=== PATIENT | female | born 1995 | race Caucasian/White ===

== ENCOUNTER 2017-08-19 10:56 | Inpatient (IN) | payer OTHER ==
--- NOTE | 2017-08-19 12:20 | Emergency Department Report ---
HPI - General Chief Complaint: Urogenital-Female Time Seen by Provider: 08/19/17 12:19 - HPI HPI: Patient here with her family reports that she has a sore throat with right ear pain and painful urination for 4 days. She says she had a fever and she took some Motrin and her fever went away. She said pain to throat and right ear is 10 out of 10. She reports that she has difficulty swallowing and she is spitting a lot. When asked if she is cheerful and she said yes. She denies any neck stiffness will report that she has pain to her anterior neck. Pain feels sore worse with swallowing. Denies any cough in. Denies any shortness of breath or chest pain. She also reports that she has painful urination but denies any back pain. Denies any abdominal pain. Last menstrual period was . Patient says she takes no medication and she does not have any medical problem. She says she does not have a primary care physician and doesn' t have to go to the doctor because she is pretty much healthy. Noted patient with elevated heart rate of 122. ED Past Medical Hx - Past Medical History Previous Medical History?: No - Surgical History Past Surgical History?: No - Family History Family history: no significant - Social History Smoking Status: Never Smoker Substance Use Type: None - Medications Home Medications: Home Medications Medication Instructions Recorded Confirmed Last Taken Type No Known Home Medications [No 08/19/17 08/19/17 Unknown History Reported Home Medications] ED Review of Systems ROS: Stated complaint: THROAT/EAR/KIDNEY PAIN Other details as noted in HPI Comment: All other systems reviewed and negative Constitutional: fever, malaise Eyes: denies: eye pain, eye discharge, vision change ENT: ear pain, throat pain. denies: dental pain, hearing loss, congestion Respiratory: no symptoms reported Cardiovascular: denies: chest pain, palpitations, edema, syncope Gastrointestinal: denies: abdominal pain, nausea, vomiting, diarrhea, constipation, hematemesis, melena, hematochezia Genitourinary: dysuria. denies: urgency, frequency, hematuria, discharge, abnormal menses, dyspareunia Musculoskeletal: denies: back pain, joint swelling, arthralgia, myalgia Skin: denies: rash Neurological: denies: headache, numbness, paresthesias, confusion, abnormal gait , vertigo Physical Exam - Physical Exam Vital Signs: Vital Signs 08/19/17 11:11 Temperature 98.3 F Pulse Rate 122 H Respiratory 18 Rate Blood Pressure 137/98 O2 Sat by Pulse 100 Oximetry Vital Signs 08/19/17 08/19/17 08/19/17 11:11 16:16 19:44 Temperature 98.3 F 99.5 F 98.2 F Pulse Rate 122 H 88 92 H Respiratory 18 16 16 Rate Blood Pressure 137/98 102/68 Blood Pressure 103/77 [Right] O2 Sat by Pulse 100 98 Oximetry General: This is a 21-year-old female well-nourished well-developed but appears ill Physical Exam: Head: Normocephalic, atraumatic, no abrasion, no bruising and no contusion. Eyes: Biateral pupils equal and reactive to light, bilateral EOM intact.. Bilateral conjunctival and sclera without injection, normal accommodation. Ears: Bilateral EAC without any redness drainage or swelling, lateral TM pearly styles bilateral tragus is normal and nontender. No auricular abnormality. No Mastoid bones tenderness. Nose: Moist, normal mucosa. No drainage. Maxillary and frontal sinuses nontender to palpate Mouth: Positive right pharyngeal swelling and erythema. The right tonsillar swelling. Uvula is stated to the left and oral airways patent. tongue is normal. right peritonsillar abscess. Neck: Supple, Positive anterior Cervical adenopathy, full range of motion and no C-spine tenderness. No swelling or tracheal deviation Abdomen: Soft, nontender to palpate in all quadrants, no CVA tenderness bilaterally. Normal bowel sounds in all quadrants. Cardiovascular: S1, S2. Cortical 122, regular rhythm rhythm. No murmur. Capillary refill is less then 3 seconds. Lungs: Clear to auscultate bilaterally. No rhonchi, wheezes or rales. No chest wall tenderness MSK: Strength 5/5 in all extremities. No joint deformity or crepitus. Normal inspection. Full range of motion to all extremities Extremities: No clubbing, cyanosis or edema. +2 pulses. No neurovascular compromise Skin: Clean, dry and intact. No rash or lesions. Psych: Normal mood and behavior. ED Course Vital Signs 08/19/17 11:11 Temperature 98.3 F Pulse Rate 122 H Respiratory 18 Rate Blood Pressure 137/98 O2 Sat by Pulse 100 Oximetry Vital Signs 08/19/17 08/19/17 08/19/17 11:11 16:16 19:44 Temperature 98.3 F 99.5 F 98.2 F Pulse Rate 122 H 88 92 H Respiratory 18 16 16 Rate Blood Pressure 137/98 102/68 Blood Pressure 103/77 [Right] O2 Sat by Pulse 100 98 Oximetry - Reevaluation(s) Reevaluation #1: 08/19/17 13:49 Patient here with family reports that she has sore throat and urinary pain. Also with pain to her right ear. Physical findings for swelling for rt oropharynx without any exudate. And also reports drooling Positive right peritonsillar abscess. Pt said that she had a fever but she took over-the- counter pain medication she does not have a fever present. She reports chills. Labs ordered, patient started on IV fluid and was given Toradol 30 mg IV, Zofran 4 mg IV and Solu-Medrol 125 mg IV. Strep test collected and awaiting results. I discussed the patient that she'll need to have a CT scan of the neck with IV contrast and she voiced understanding. Patient is stable and in no acute distress. Reevaluation #2: 08/19/17 13:57 Urinalysis results came back for patient with large leukocyte Estrace, greater than 500 urine blood glucose, large amount of white blood cells and positive bacteria. Patient also negative for . Patient is currently on IV fluid at 1 L she has ketones at 80 in her urine and will be given IV fluid second liter at 1 25 mL an hour after first liter. She is to be started on IV Zosyn 1 dose. Blood cultures ordered and patient for CT scan of the neck with IV contrast. I spoke with Dr. Nixon regarding patient presentation, clinical findings and workup including lab and diagnostics. He is to see the patient shortly. Reevaluation #3: 08/19/17 16:06 Radiologist called to say that patient will write tonsillitis and peritonsillar tonsillar abscess that is just starting. CT scan of the neck results showed patient with right tonsillitis and probably phlegmon versus abscess. As previously said, radiologist called after her CT scan reported that patient would definitely right peritonsillar abscess. I spoke with Dr. Nixon and he reviewed CT scan and reported that abscess is very small and that patient can be admitted in hospital by hospitalist and consult Dr. Caden Ojeda who is ENT. Patient will be getting IV clindamycin per Dr. Nixon. completed Zosyn 4.5 grams.. She says she is feeling better and I updated her on her labs, CT scan and plans for admission. She is in agreement. ED Medical Decision Making - Lab Data Result diagrams: 08/19/17 15:23 08/19/17 15:15 Lab Results 08/19/17 08/19/17 08/19/17 Range/Units 15:15 15:23 Unknown WBC 17.2 H (4.5-11.0) K/mm3 RBC 4.29 (3.65-5.03) M/mm3 Hgb 10.6 (10.1-14.3) gm/dl Hct 32.7 (30.3-42.9) % MCV 76 L (79-97) fl MCH 25 L (28-32) pg MCHC 33 (30-34) % RDW 16.3 H (13.2-15.2) % Plt Count 274 (140-440) K/mm3 Seg Neutrophils % [employer] Sodium 139 (137-145) mmol/L Potassium 3.6 (3.6-5.0) mmol/L Chloride 99.4 (98-107) mmol/L Carbon Dioxide 20 L (22-30) mmol/L Anion Gap 23 mmol/L BUN 12 (7-17) mg/dL Creatinine 0.5 L (0.7-1.2) mg/dL Estimated GFR > 60 ml/min BUN/Creatinine Ratio 24.00 % Glucose 88 (65-100) mg/dL Calcium 8.3 L (8.4-10.2) mg/dL Total Bilirubin 0.70 (0.1-1.2) mg/dL Direct Bilirubin 0.3 H (0-0.2) mg/dL Indirect Bilirubin 0.4 mg/dL AST 10 (5-40) units/L ALT 8 (7-56) units/L Alkaline Phosphatase 62 (35-129) units/L Total Protein 6.7 (6.3-8.2) g/dL Albumin 3.9 (3.9-5) g/dL Albumin/Globulin Ratio 1.4 % Urine Color Yellow (Yellow) Urine Turbidity Clear (Clear) Urine pH 6.0 (5.0-7.0) Ur Specific [place] 1.026 (1.003-1.030) Urine Protein >500 (Negative) mg/dL Urine Glucose (UA) Neg (Negative) mg/dL Urine Ketones 80 (Negative) mg/dL Urine Blood Mod (Negative) Urine Nitrite Neg (Negative) Urine Bilirubin Neg (Negative) Urine Urobilinogen 2.0 (<2.0) mg/dL Ur Leukocyte Esterase Lg (Negative) Urine WBC (Auto) > 182.0 H (0.0-6.0) /HPF Urine RBC (Auto) 40.0 (0.0-6.0) /HPF U Epithel Cells (Auto) 10.0 (0-13.0) /HPF Urine Bacteria (Auto) 1+ (Negative) /HPF Amorphous Crystals Few Urine Mucus 3+ /HPF Urine HCG, Qual Negative (Negative) Blood cultures are pending Urine culture pending - Radiology Data Radiology results: report reviewed CT scan of the neck with IV contrast reveal patient with right tonsillitis, phlegmon versus new onset peritonsillar abscess on the right side. Radiologist Dr. Anson Patterson called after CT report and reported that patient has a definite right peritonsillar abscess that is small. - Medical Decision Making ED course: Vision presented to the emergency room appearing L and reports that she has painful urination for 4 days and sore throat, drooling, fever and neck pain. Physical findings for right peritonsillar abscess without any obstruction and an oral airway. CT scan of the neck shows patient with right tonsillitis and radiologist called and verified the patient has right tonsillitis and right peritonsillar abscess. Radiology report section for further detail. Patient CBC with elevated white count of 17.2 with bacterial shift. CMP with mild decrease in calcium of 8.3 and mild increase and direct bilirubin, mild decrease in CO2 of 20. Urinalysis shows greater than 500 protein, 80 ketones, large leukocyte Estrace, moderate blood and greater than 182 white blood cells with positive bacteria. Urine culture ended and urine evidence that this is negative. Blood cultures also pending. Strep test is negative and culture is pending. Patient given IV fluid 1 L bolus and started on IV fluid at 1 25 mL an hour, she was given Zofran 4 mg IV, Solu-Medrol 125 mg IV, Toradol 30 mg IV. Patient was given Zosyn 4.5 g IV without any adverse reaction. I spoke with Dr. Nixon who reviewed patient CT scan and it was decided that patient can be admitted for hospitalist service with consult to Dr. Quick who is ENT for follow-up tomorrow. Dr. Nixon reviewed patient labs, CT scan. He wants patient's to get clindamycin IV therefore patient was started on clindamycin 900 mg IV which she tolerated without any adverse reaction. Patient with right peritonsillar abscess, right tonsillitis, pharyngitis, leukocytosis, acute cystitis with hematuria, proteinuria and dehydration. With hospitalist Dr. Domínguez. Patient and admitted patient to [facility] and said that he will consult. Nose and throat doctor. Patient and family updated on plan for admission, diagnosis, laboratory and diagnostics test results. They are in agreement for admission and patient is better after IV fluid and antibiotic. Critical care attestation.: If time is entered above; I have spent that time in minutes in the direct care of this critically ill patient, excluding procedure time. ED Disposition Clinical Impression: Peritonsillar abscess, Acute erythematous tonsillitis, Dehydration, Acute cystitis with hematuria, Dysuria Pharyngitis Qualifiers: Pharyngitis/tonsillitis etiology: unspecified etiology Qualified Code(s): J02.9 - Acute pharyngitis, unspecified Leukocytosis, unspecified Qualifiers: Leukocytosis type: unspecified Qualified Code(s): D72.829 - Elevated white blood cell count, unspecified Proteinuria Qualifiers: Proteinuria type: unspecified Qualified Code(s): R80.9 - Proteinuria, unspecified Disposition: OP ADMIT IP TO THIS HOSP Is pt being admited?: Yes Does the pt Need Aspirin: No Condition: Stable
[2017-08-19] MEDS ORDERED: ZOFRAN IV ONE (12:54)
[2017-08-19] MEDS ORDERED: NACL 0.9% 1000 ML 1,000 ML IV ONE (12:54)
[2017-08-19] MEDS ORDERED: TORADOL IV ONE (12:54)
[2017-08-19 13:22] LABS: Bacteria,Urine 1+ /HPF (Negative); Bilirubin,Urine NEG (Negative); Blood,Urine MOD (Negative); Ketones,Urine 80 mg/dL (Negative); Leukocyte Esterase,Urine LG (Negative); Mucus,Urine 3+ /HPF; Nitrite,Urine NEG (Negative)
[2017-08-19 13:24] LABS: Protein,Urine >500 mg/dL (Negative); WBC,Urine > 182.0 /HPF (0.0-6.0)
[2017-08-19] MEDS ORDERED: ZOSYN/NS 4.5GM/100ML 4.5 GM/100 ML VIAL IV ONE (13:54)
[2017-08-19] MEDS ORDERED: NACL ONE (14:13)
--- NOTE | 2017-08-19 15:09 | Cat Scan Report ---
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 Coronal and sagittal reconstructed imaging provided. PRIORS: None currently available. FINDINGS: Bilateral palatine tonsils are enlarged. Low-attenuation area noted within the right tonsil on series 3:42 measures 15.5 x 15.3 x 25.6 mm and is probably consistent with a phlegmon or developing peritonsillar abscess. Nasopharyngeal tonsils are intact. There is mild prominence of the right lingual tonsils. There is notable swelling noted within the right pharynx and right parapharyngeal soft tissues. The right floor of the mouth is also swollen. The submandibular spaces intact. Notable right submandibular and bilateral upper cervical lymph nodes are prominent suggesting adenopathy. Airway is narrowed with the narrowest diameter measuring 9.0 x 16.8 mm. Epiglottis is unremarkable. Larynx is unremarkable. True cords are unremarkable. There may be some trace fluid or swelling in the right retropharyngeal soft tissues on series 3:55. Submandibular glands are unremarkable. Parotid glands are unremarkable. Images of the thyroid are unremarkable. Patent vascular structures demonstrate calcifications. No mass lesions identified. Partially imaged paranasal sinuses are unremarkable. Partially imaged temporal bones are unremarkable. Reversal of the normal cervical alignment may be physiologic. Partial images of the lungs are unremarkable. IMPRESSION: Right pharyngitis and tonsillitis with a right peritonsillar phlegmon or developing abscess. Swelling does slightly extent along the right floor of the mouth. No involvement of the submandibular soft tissues. Reactive right submandibular and bilateral upper cervical adenopathy noted.
[2017-08-19 15:32] LABS: Hematocrit 32.7 % (30.3-42.9); Hemoglobin 10.6 gm/dl (10.1-14.3); Mean Corpuscular HGB Conc 33 % (30-34); Mean Corpuscular Volume 76 fl (79-97); Platelet Count 274 K/mm3 (140-440); Red Blood Count 4.29 M/mm3 (3.65-5.03); Red Cell Distribution Width 16.3 % (13.2-15.2); White Blood Count 17.2 K/mm3 (4.5-11.0)
[2017-08-19 15:38] LABS: Mean Corpuscular Hemoglobin 25 pg (28-32)
[2017-08-19 15:48] LABS: Alanine Aminotransferase 8 units/L (7-56); Albumin 3.9 g/dL (3.9-5); Albumin/Globulin Ratio 1.4 %; Alkaline Phosphatase 62 units/L (35-129); Anion Gap 23 mmol/L; Bilirubin,Direct 0.3 mg/dL (0-0.2); Bilirubin,Indirect 0.4 mg/dL; Blood Urea Nitrogen 12 mg/dL (7-17); Calcium 8.3 mg/dL (8.4-10.2); Carbon Dioxide 20 mmol/L (22-30); Chloride 99.4 mmol/L (98-107); Glucose 88 mg/dL (65-100); Potassium 3.6 mmol/L (3.6-5.0); Sodium 139 mmol/L (137-145); Total Protein 6.7 g/dL (6.3-8.2)
[2017-08-19 16:25] LABS: Blastocytes % (Manual) 0 %
[2017-08-19 16:26] LABS: Eosinophils % (Manual) 0 % (0.0-4.3)
[2017-08-19 16:28] LABS: Diff Status Complete; Elliptocytes Few; Platelet Estimate Consistent w Auto
[2017-08-19] MEDS: NACL 0.9% 1000 ML 1,000 ML IV SCH ×2 (18:04→22:39)
[2017-08-19] MEDS ORDERED: NACL 0.9% 1000 ML 1,000 ML ONE (18:08)
[2017-08-19] MEDS ORDERED: MORPHINE IV PRN (22:21)
[2017-08-19] MEDS ORDERED: DILAUDID IV PRN (23:46)
[2017-08-19] MEDS ORDERED: MILK OF MAGNESIA PO PRN (23:46)
[2017-08-19] MEDS ORDERED: DULCOLAX PR PRN (23:46)
[2017-08-19] MEDS ORDERED: ZOFRAN IV PRN (23:46)
--- NOTE | 2017-08-19 23:46 | History and Physical Report ---
History of Present Illness Date of examination: 08/19/17 Date of admission: 08/19/17 16:35 Medications and Allergies Allergies Allergy/AdvReac Type Severity Reaction Status Date / Time No Known Allergies Allergy Unverified 08/19/17 11:16 Home Medications Medication Instructions Recorded Confirmed Last Taken Type No Known Home Medications [No 08/19/17 08/19/17 Unknown History Reported Home Medications] Active Meds: Active Medications Sodium Chloride (Nacl 0.9% 1000 Ml) 1,000 mls @ 125 mls/hr IV DIRECT PRAVEEN Last Admin: 08/19/17 22:39 Dose: 125 mls/hr Morphine Sulfate (Morphine) 1 mg IV Q6H PRN PRN Reason: Pain, Moderate (4-6) Last Admin: 08/19/17 22:37 Dose: 1 mg Exam - Constitutional Vitals: Temp Pulse Resp BP Pulse Ox 98.2 F 92 H 16 102/68 98 08/19/17 19:44 08/19/17 19:44 08/19/17 19:44 08/19/17 19:44 08/19/17 19:44 Results - Labs CBC & Chem 7: 08/19/17 15:23 08/19/17 15:15 Labs: Laboratory Last Values WBC 17.2 K/mm3 (4.5-11.0) H 08/19/17 15:23 RBC 4.29 M/mm3 (3.65-5.03) 08/19/17 15:23 Hgb 10.6 gm/dl (10.1-14.3) 08/19/17 15:23 Hct 32.7 % (30.3-42.9) 08/19/17 15:23 MCV 76 fl (79-97) L 08/19/17 15:23 MCH 25 pg (28-32) L 08/19/17 15:23 MCHC 33 % (30-34) 08/19/17 15:23 RDW 16.3 % (13.2-15.2) H 08/19/17 15:23 Plt Count 274 K/mm3 (140-440) 08/19/17 15:23 Add Manual Diff Complete 08/19/17 15:23 Total Counted 100 08/19/17 15:23 Seg Neutrophils % Youth Pastor 08/19/17 15:23 Seg Neuts % (Manual) 85.0 % (40.0-70.0) H 08/19/17 15:23 Band Neutrophils % 12.0 % 08/19/17 15:23 Lymphocytes % (Manual) 2.0 % (13.4-35.0) L 08/19/17 15:23 Reactive Lymphs % (Man) 0 % 08/19/17 15:23 Monocytes % (Manual) 1.0 % (0.0-7.3) 08/19/17 15:23 Eosinophils % (Manual) 0 % (0.0-4.3) 08/19/17 15:23 Metamyelocytes % 0 % 08/19/17 15:23 Myelocytes % 0 % 08/19/17 15:23 Promyelocytes % 0 % 08/19/17 15:23 Blast Cells % 0 % 08/19/17 15:23 Nucleated RBC % Not Reportable 08/19/17 15:23 Seg Neutrophils # Man 14.6 K/mm3 (1.8-7.7) H 08/19/17 15:23 Band Neutrophils # 2.1 K/mm3 08/19/17 15:23 Lymphocytes # (Manual) 0.3 K/mm3 (1.2-5.4) L 08/19/17 15:23 Abs React Lymphs (Man) 0.0 K/mm3 08/19/17 15:23 Monocytes # (Manual) 0.2 K/mm3 (0.0-0.8) 08/19/17 15:23 Eosinophils # (Manual) 0.0 K/mm3 (0.0-0.4) 08/19/17 15:23 Basophils # (Manual) 0.0 K/mm3 (0.0-0.1) 08/19/17 15:23 Metamyelocytes # 0.0 K/mm3 08/19/17 15:23 Myelocytes # 0.0 K/mm3 08/19/17 15:23 Promyelocytes # 0.0 K/mm3 08/19/17 15:23 Blast Cells # 0.0 K/mm3 08/19/17 15:23 WBC Morphology Not Reportable 08/19/17 15:23 Hypersegmented Neuts Not Reportable 08/19/17 15:23 Hyposegmented Neuts Not Reportable 08/19/17 15:23 Hypogranular Neuts Not Reportable 08/19/17 15:23 Smudge Cells Not Reportable 08/19/17 15:23 Toxic Granulation Not Reportable 08/19/17 15:23 Toxic Vacuolation Not Reportable 08/19/17 15:23 Dohle Bodies Not Reportable 08/19/17 15:23 Pelger-Huet Anomaly Not Reportable 08/19/17 15:23 Araceli Rods Not Reportable 08/19/17 15:23 Platelet Estimate Consistent w auto 08/19/17 15:23 Clumped Platelets Not Reportable 08/19/17 15:23 Plt Clumps, EDTA Not Reportable 08/19/17 15:23 Large Platelets Not Reportable 08/19/17 15:23 Giant Platelets Not Reportable 08/19/17 15:23 Platelet Satelliting Not Reportable 08/19/17 15:23 Plt Morphology Comment Not Reportable 08/19/17 15:23 RBC Morphology Not Reportable 08/19/17 15:23 Dimorphic RBCs Not Reportable 08/19/17 15:23 Polychromasia Not Reportable 08/19/17 15:23 Hypochromasia Not Reportable 08/19/17 15:23 Poikilocytosis Not Reportable 08/19/17 15:23 Anisocytosis Not Reportable 08/19/17 15:23 Microcytosis Not Reportable 08/19/17 15:23 Macrocytosis Not Reportable 08/19/17 15:23 Spherocytes Not Reportable 08/19/17 15:23 Pappenheimer Bodies Not Reportable 08/19/17 15:23 Sickle Cells Not Reportable 08/19/17 15:23 Target Cells Not Reportable 08/19/17 15:23 Tear Drop Cells Not Reportable 08/19/17 15:23 Ovalocytes Not Reportable 08/19/17 15:23 Helmet Cells Not Reportable 08/19/17 15:23 [place] Bodies Not Reportable 08/19/17 15:23 [place] Rings Not Reportable 08/19/17 15:23 [place] Cells Not Reportable 08/19/17 15:23 Bite Cells Not Reportable 08/19/17 15:23 Crenated Cell Not Reportable 08/19/17 15:23 Elliptocytes Few 08/19/17 15:23 Acanthocytes (Spur) Not Reportable 08/19/17 15:23 Rouleaux Not Reportable 08/19/17 15:23 Hemoglobin C Crystals Not Reportable 08/19/17 15:23 Schistocytes Not Reportable 08/19/17 15:23 Malaria parasites Not Reportable 08/19/17 15:23 [place] Bodies Not Reportable 08/19/17 15:23 Hem Pathologist Commnt No 08/19/17 15:23 Sodium 139 mmol/L (137-145) 08/19/17 15:15 Potassium 3.6 mmol/L (3.6-5.0) 08/19/17 15:15 Chloride 99.4 mmol/L (98-107) 08/19/17 15:15 Carbon Dioxide 20 mmol/L (22-30) L 08/19/17 15:15 Anion Gap 23 mmol/L 08/19/17 15:15 BUN 12 mg/dL (7-17) 08/19/17 15:15 Creatinine 0.5 mg/dL (0.7-1.2) L 08/19/17 15:15 Estimated GFR > 60 ml/min 08/19/17 15:15 BUN/Creatinine Ratio 24.00 % 08/19/17 15:15 Glucose 88 mg/dL (65-100) 08/19/17 15:15 Calcium 8.3 mg/dL (8.4-10.2) L 08/19/17 15:15 Total Bilirubin 0.70 mg/dL (0.1-1.2) 08/19/17 15:15 Direct Bilirubin 0.3 mg/dL (0-0.2) H 08/19/17 15:15 Indirect Bilirubin 0.4 mg/dL 08/19/17 15:15 AST 10 units/L (5-40) 08/19/17 15:15 ALT 8 units/L (7-56) 08/19/17 15:15 Alkaline Phosphatase 62 units/L (35-129) 08/19/17 15:15 Total Protein 6.7 g/dL (6.3-8.2) 08/19/17 15:15 Albumin 3.9 g/dL (3.9-5) 08/19/17 15:15 Albumin/Globulin Ratio 1.4 % 08/19/17 15:15 Urine Color Yellow (Yellow) 08/19/17 Unknown Urine Turbidity Clear (Clear) 08/19/17 Unknown Urine pH 6.0 (5.0-7.0) 08/19/17 Unknown Ur Specific [place] 1.026 (1.003-1.030) 08/19/17 Unknown Urine Protein >500 mg/dL (Negative) 08/19/17 Unknown Urine Glucose (UA) Neg mg/dL (Negative) 08/19/17 Unknown Urine Ketones 80 mg/dL (Negative) 08/19/17 Unknown Urine Blood Mod (Negative) 08/19/17 Unknown Urine Nitrite Neg (Negative) 08/19/17 Unknown Urine Bilirubin Neg (Negative) 08/19/17 Unknown Urine Urobilinogen 2.0 mg/dL (<2.0) 08/19/17 Unknown Ur Leukocyte Esterase Lg (Negative) 08/19/17 Unknown Urine WBC (Auto) > 182.0 /HPF (0.0-6.0) H 08/19/17 Unknown Urine RBC (Auto) 40.0 /HPF (0.0-6.0) 08/19/17 Unknown U Epithel Cells (Auto) 10.0 /HPF (0-13.0) 08/19/17 Unknown Urine Bacteria (Auto) 1+ /HPF (Negative) 08/19/17 Unknown Amorphous Crystals Few 08/19/17 Unknown Urine Mucus 3+ /HPF 08/19/17 Unknown Urine HCG, Qual Negative (Negative) 08/19/17 Unknown
[2017-08-20 05:24] LABS: Hematocrit 30.3 % (30.3-42.9); Hemoglobin 9.8 gm/dl (10.1-14.3); Mean Corpuscular HGB Conc 32 % (30-34); Mean Corpuscular Volume 76 fl (79-97); Platelet Count 298 K/mm3 (140-440); Red Cell Distribution Width 16.5 % (13.2-15.2)
[2017-08-20 05:29] LABS: Mean Corpuscular Hemoglobin 24 pg (28-32)
[2017-08-20 05:53] LABS: Alanine Aminotransferase 9 units/L (7-56); Albumin 3.6 g/dL (3.9-5); Alkaline Phosphatase 64 units/L (35-129); Anion Gap 18 mmol/L; Blood Urea Nitrogen 13 mg/dL (7-17); Calcium 8.9 mg/dL (8.4-10.2); Carbon Dioxide 24 mmol/L (22-30); Chloride 103.1 mmol/L (98-107); Glucose 144 mg/dL (65-100); Potassium 3.6 mmol/L (3.6-5.0); Sodium 141 mmol/L (137-145); Total Protein 7.1 g/dL (6.3-8.2)
[2017-08-20] MEDS: D5NS 1,000 ML IV SCH ×2 (05:53→19:42)
[2017-08-20 07:58] LABS: Basophils % (Manual) 0 % (0.0-1.8); Blastocytes % (Manual) 0 %; Eosinophils % (Manual) 0 % (0.0-4.3)
[2017-08-20 07:59] LABS: Anisocytosis 1+; Diff Status Complete; Elliptocytes Few; Hypochromasia 1+
--- NOTE | 2017-08-20 08:08 | Event Note ---
Date: 08/19/17 See H/p in reports Peritonsillar abscess On Rocephin and low dose Methyl prednisone
--- NOTE | 2017-08-20 09:20 | History and Physical Report ---
CHIEF COMPLAINT: Sore throat and right ear pain for 4 days. HISTORY OF PRESENT ILLNESS: The patient is a 21-year-old female with no significant past medical history who comes in for fever of 3-4 days and sore throat and right ear pain. The patient also has had some difficulty swallowing. No shortness of breath. The patient has a history of recurrent tonsillitis, about 2-3 times a year. Pain is about 10 on a scale of 1-10. PAST MEDICAL HISTORY: Significant for no hypertension, no diabetes. PAST SURGICAL HISTORY: None. FAMILY HISTORY: No hypertension, no diabetes. SOCIAL HISTORY: She does not smoke. CURRENT MEDICATIONS: None. REVIEW OF SYSTEMS: HEENT: Sore throat and right ear pain present. Pain is about 10 on a scale of 1-10. NECK: No neck pain. CARDIOVASCULAR AND RESPIRATORY SYSTEM: No shortness of breath, no chest pain, no palpitations. GASTROINTESTINAL: No nausea, no vomiting, no diarrhea. GENITOURINARY: No dysuria, no flank pain. MUSCULOSKELETAL: No joint pains. CENTRAL NERVOUS SYSTEM: No syncope, no seizures. SKIN: No rashes. ENDOCRINE: No polyuria or polydipsia. No weakness. A 14-point review of systems was done. Otherwise negative. Only positive complaint is sore throat and right ear pain. Right ear pain is about 10/10. PHYSICAL EXAMINATION: GENERAL: Young female, cooperative during examination. VITAL SIGNS: Temperature is 98.3, pulse is 122, respirations 18, blood pressure 137/98. HEENT: Unremarkable. Pupils are equal and reactive. Posterior pharynx, right tonsillar swelling present, coming up to the midline, pushing the uvula to the left. Jugulodigastric lymph node is swollen on the right side. NECK: Supple, no lymphadenopathy, no thyromegaly except for the jugulodigastric lymph node on the right side. CARDIOVASCULAR: Irregular heart rate. No gallop, no murmur, no rub. Apical impulse in left fifth intercostal space and midclavicular line. LUNGS: Clear to auscultation and percussion. Good air entry. ABDOMEN: Soft and benign. No hepatosplenomegaly. No guarding, no rigidity. Hernial orifices are normal. EXTREMITIES: Good pedal pulses. No pedal edema. CENTRAL NERVOUS SYSTEM: Alert and oriented x 4. Nonfocal exam. SKIN: Normal. LABORATORY DATA: Significant for white count of 17,200, hemoglobin is 10.6, hematocrit is 32.7. IMAGING STUDIES: CT of the neck and right enlarged tonsils with possible peritonsillar abscess. ASSESSMENT AND PLAN: 1. Peritonsillar abscess. The patient was initiated with IV Rocephin and low dose of methylprednisone to decrease the swelling 40 mg IV q. 12 hours. We will defer to ENT to evaluate and stop the methylprednisone. The patient was given one dose of Zosyn in the ER. I feel Rocephin should be adequate for the treatment of peritonsillar abscess. Zosyn is an oral pill. 2. Dehydration secondary to poor p.o. intake, IV fluids for now. 3. Deep venous thrombosis prophylaxis, Lovenox 40 mg subcutaneous daily. JOB# [id number] JN/INOCENCIO
[2017-08-20] MEDS ORDERED: ROCEPHIN/NS 2 GM/100 ML 2 GM/100 ML BAG IV SCH (10:00)
--- NOTE | 2017-08-20 11:09 | Progress Note ---
Assessment and Plan Assessment and plan: Peritonsillar abscess. Continue IV antibiotics. Consult ID. ENT consultation pending. Right pharyngitis/tonsillitis. As above. Cervical lymphadenopathy. Malar rash. Check DIMPLE History Interval history: Patient complains of throat pain and difficulty swallowing. Hospitalist Physical - Constitutional Vitals: Temp Pulse Resp BP Pulse Ox 98.5 F 67 20 91/53 98 08/20/17 07:11 08/20/17 07:11 08/20/17 07:11 08/20/17 07:11 08/20/17 07:11 General appearance: Present: no acute distress, well-nourished - EENT Eyes: Present: PERRL, EOM intact ENT: hearing intact, clear oral mucosa, dentition normal - Neck Neck: Present: supple, normal ROM, cervical LAD - Respiratory Respiratory effort: normal Respiratory: bilateral: CTA - Cardiovascular Rhythm: regular Heart Sounds: Present: S1 & S2. Absent: gallop, rub - Extremities Extremities: no ischemia, No edema, Full ROM - Abdominal General gastrointestinal: soft, non-tender, non-distended, normal bowel sounds - Integumentary Integumentary: Present: clear, warm, dry - Neurologic Neurologic: CNII-XII intact, moves all extremities Results - Labs CBC & Chem 7: 08/20/17 04:51 08/20/17 04:51 Labs: Laboratory Last Values WBC 19.0 K/mm3 (4.5-11.0) H 08/20/17 04:51 RBC 4.00 M/mm3 (3.65-5.03) 08/20/17 04:51 Hgb 9.8 gm/dl (10.1-14.3) L 08/20/17 04:51 Hct 30.3 % (30.3-42.9) 08/20/17 04:51 MCV 76 fl (79-97) L 08/20/17 04:51 MCH 24 pg (28-32) L 08/20/17 04:51 MCHC 32 % (30-34) 08/20/17 04:51 RDW 16.5 % (13.2-15.2) H 08/20/17 04:51 Plt Count 298 K/mm3 (140-440) 08/20/17 04:51 Add Manual Diff Complete 08/20/17 04:51 Total Counted 100 09/25/17 04:51 Seg Neutrophils % [place] Washer 08/20/17 04:51 Seg Neuts % (Manual) 79.0 % (40.0-70.0) H 08/20/17 04:51 Band Neutrophils % 10.0 % 08/20/17 04:51 Lymphocytes % (Manual) 10.0 % (13.4-35.0) L 08/20/17 04:51 Reactive Lymphs % (Man) 0 % 08/20/17 04:51 Monocytes % (Manual) 1.0 % (0.0-7.3) 08/20/17 04:51 Eosinophils % (Manual) 0 % (0.0-4.3) 08/20/17 04:51 Basophils % (Manual) 0 % (0.0-1.8) 08/20/17 04:51 Metamyelocytes % 0 % 08/20/17 04:51 Myelocytes % 0 % 08/20/17 04:51 Promyelocytes % 0 % 08/20/17 04:51 Blast Cells % 0 % 08/20/17 04:51 Nucleated RBC % Not Reportable 08/20/17 04:51 Seg Neutrophils # Man 15.0 K/mm3 (1.8-7.7) H 08/20/17 04:51 Band Neutrophils # 1.9 K/mm3 08/20/17 04:51 Lymphocytes # (Manual) 1.9 K/mm3 (1.2-5.4) 08/20/17 04:51 Abs React Lymphs (Man) 0.0 K/mm3 08/20/17 04:51 Monocytes # (Manual) 0.2 K/mm3 (0.0-0.8) 08/20/17 04:51 Eosinophils # (Manual) 0.0 K/mm3 (0.0-0.4) 08/20/17 04:51 Basophils # (Manual) 0.0 K/mm3 (0.0-0.1) 08/20/17 04:51 Metamyelocytes # 0.0 K/mm3 08/20/17 04:51 Myelocytes # 0.0 K/mm3 08/20/17 04:51 Promyelocytes # 0.0 K/mm3 08/20/17 04:51 Blast Cells # 0.0 K/mm3 08/20/17 04:51 WBC Morphology Not Reportable 08/20/17 04:51 Hypersegmented Neuts Not Reportable 08/20/17 04:51 Hyposegmented Neuts Not Reportable 08/20/17 04:51 Hypogranular Neuts Not Reportable 08/20/17 04:51 Smudge Cells Not Reportable 08/20/17 04:51 Toxic Granulation Not Reportable 08/20/17 04:51 Toxic Vacuolation Not Reportable 08/20/17 04:51 Dohle Bodies Not Reportable 08/20/17 04:51 Pelger-Huet Anomaly Not Reportable 08/20/17 04:51 Araceli Rods Not Reportable 08/20/17 04:51 Platelet Estimate Appears normal 08/20/17 04:51 Clumped Platelets Not Reportable 08/20/17 04:51 Plt Clumps, EDTA Not Reportable 08/20/17 04:51 Large Platelets Not Reportable 08/20/17 04:51 Giant Platelets Not Reportable 08/20/17 04:51 Platelet Satelliting Not Reportable 08/20/17 04:51 Plt Morphology Comment Not Reportable 08/20/17 04:51 RBC Morphology Not Reportable 08/20/17 04:51 Dimorphic RBCs Not Reportable 08/20/17 04:51 Polychromasia Not Reportable 08/20/17 04:51 Hypochromasia 1+ 08/20/17 04:51 Poikilocytosis Not Reportable 08/20/17 04:51 Anisocytosis 1+ 08/20/17 04:51 Microcytosis Not Reportable 08/20/17 04:51 Macrocytosis Not Reportable 08/20/17 04:51 Spherocytes Not Reportable 08/20/17 04:51 Pappenheimer Bodies Not Reportable 08/20/17 04:51 Sickle Cells Not Reportable 08/20/17 04:51 Target Cells Not Reportable 08/20/17 04:51 Tear Drop Cells Not Reportable 08/20/17 04:51 Ovalocytes Not Reportable 08/20/17 04:51 Helmet Cells Not Reportable 08/20/17 04:51 [place] Bodies Not Reportable 08/20/17 04:51 [place] Rings Not Reportable 08/20/17 04:51 [place] Cells Not Reportable 08/20/17 04:51 Bite Cells Not Reportable 08/20/17 04:51 Crenated Cell Not Reportable 08/20/17 04:51 Elliptocytes Few 08/20/17 04:51 Acanthocytes (Spur) Not Reportable 08/20/17 04:51 Rouleaux Not Reportable 08/20/17 04:51 Hemoglobin C Crystals Not Reportable 08/20/17 04:51 Schistocytes Not Reportable 08/20/17 04:51 Malaria parasites Not Reportable 08/20/17 04:51 [place] Bodies Not Reportable 08/20/17 04:51 Hem Pathologist Commnt No 08/20/17 04:51 Sodium 141 mmol/L (137-145) 08/20/17 04:51 Potassium 3.6 mmol/L (3.6-5.0) 08/20/17 04:51 Chloride 103.1 mmol/L (98-107) 08/20/17 04:51 Carbon Dioxide 24 mmol/L (22-30) 08/20/17 04:51 Anion Gap 18 mmol/L 08/20/17 04:51 BUN 13 mg/dL (7-17) 08/20/17 04:51 Creatinine 0.5 mg/dL (0.7-1.2) L 08/20/17 04:51 Estimated GFR > 60 ml/min 08/20/17 04:51 BUN/Creatinine Ratio 26.00 % 08/20/17 04:51 Glucose 144 mg/dL (65-100) H 08/20/17 04:51 Calcium 8.9 mg/dL (8.4-10.2) 08/20/17 04:51 Total Bilirubin 0.30 mg/dL (0.1-1.2) 08/20/17 04:51 Direct Bilirubin 0.3 mg/dL (0-0.2) H 08/19/17 15:15 Indirect Bilirubin 0.4 mg/dL 08/19/17 15:15 AST 9 units/L (5-40) 08/20/17 04:51 ALT 9 units/L (7-56) 08/20/17 04:51 Alkaline Phosphatase 64 units/L (35-129) 08/20/17 04:51 Total Protein 7.1 g/dL (6.3-8.2) 08/20/17 04:51 Albumin 3.6 g/dL (3.9-5) L 08/20/17 04:51 Albumin/Globulin Ratio 1.0 % 08/20/17 04:51 Urine Color Yellow (Yellow) 08/19/17 Unknown Urine Turbidity Clear (Clear) 08/19/17 Unknown Urine pH 6.0 (5.0-7.0) 08/19/17 Unknown Ur Specific [place] 1.026 (1.003-1.030) 08/19/17 Unknown Urine Protein >500 mg/dL (Negative) 08/19/17 Unknown Urine Glucose (UA) Neg mg/dL (Negative) 08/19/17 Unknown Urine Ketones 80 mg/dL (Negative) 08/19/17 Unknown Urine Blood Mod (Negative) 08/19/17 Unknown Urine Nitrite Neg (Negative) 08/19/17 Unknown Urine Bilirubin Neg (Negative) 08/19/17 Unknown Urine Urobilinogen 2.0 mg/dL (<2.0) 08/19/17 Unknown Ur Leukocyte Esterase Lg (Negative) 08/19/17 Unknown Urine WBC (Auto) > 182.0 /HPF (0.0-6.0) H 08/19/17 Unknown Urine RBC (Auto) 40.0 /HPF (0.0-6.0) 08/19/17 Unknown U Epithel Cells (Auto) 10.0 /HPF (0-13.0) 08/19/17 Unknown Urine Bacteria (Auto) 1+ /HPF (Negative) 08/19/17 Unknown Amorphous Crystals Few 08/19/17 Unknown Urine Mucus 3+ /HPF 08/19/17 Unknown Urine HCG, Qual Negative (Negative) 08/19/17 Unknown
[2017-08-20] MEDS: PEPCID IV SCH ×2 (12:37→21:19)
--- NOTE | 2017-08-20 12:53 | Consultation ---
History of Present Illness - Reason for Consult Consult date: 08/20/17 peritonsillar abscess Requesting physician: EDU KELLY - History of Present Illness 21 years old female with not known medical history, admitted on 08/19/2017 due to four-day history of severe sore throat, malaise and subjective fever on and off. She did not check her temperature. She also has been complaining of suprapubic abdominal pain, 7 out of 10 in intensity, spasm-type associated with frequency and dysuria. Patient denies any recent sick contacts or travels. She is single with 2 kids. In the emergency room, initial temperature was 98.3, heart rate 122. Initial white count 17,000. UA showed large leukocyte esterase and white blood cells more than 182. Strep group A antigen was negative. CT of the neck showed right pharingytis and tonsillitis with a tonsillar phlegmon or early abscess. Also showed reactive the right submandibular lymph node on bilateral upper cervical lymph nodes. Current Antimicrobials: Ceftriaxone 08/20 Previous Antimicrobials: Microbiology: Blood cultures: 08/19 ngtd Urine cultures: Respiratory cultures: Wound cultures: Stool cultures: Other: Strep A antigen neg Medications and Allergies Allergies Allergy/AdvReac Type Severity Reaction Status Date / Time No Known Allergies Allergy Unverified 08/19/17 11:16 Home Medications Medication Instructions Recorded Confirmed Last Taken Type No Known Home Medications [No 08/19/17 08/19/17 Unknown History Reported Home Medications] Active Meds: Active Medications Acetaminophen (Tylenol) 650 mg PO Q4H PRN PRN Reason: Pain MILD(1-3)/Fever >100.5/MANDUJANO Bisacodyl (Dulcolax) 10 mg KS QDAY PRN PRN Reason: Constipation unrelieved by MOM Famotidine (Pepcid) 20 mg IV BID PRAVEEN Last Admin: 08/20/17 12:37 Dose: 20 mg Hydromorphone HCl (Dilaudid) 0.5 mg IV Q3H PRN PRN Reason: Pain , Severe (7-10) Sodium Chloride (Nacl 0.9% 1000 Ml) 1,000 mls @ 125 mls/hr IV DIRECT PRAVEEN Last Admin: 08/19/17 22:39 Dose: 125 mls/hr Dextrose/Sodium Chloride (D5ns) 1,000 mls @ 100 mls/hr IV DIRECT PRAVEEN Last Admin: 08/20/17 05:53 Dose: 100 mls/hr Ceftriaxone Sodium (Rocephin/Ns 2 Gm/100 Ml) 2 gm in 100 mls @ 200 mls/hr IV Q24HR [facility] PRN Reason: Protocol Last Admin: 08/20/17 12:36 Dose: 200 mls/hr Magnesium Hydroxide (Milk Of Magnesia) 30 ml PO Q4H PRN PRN Reason: Constipation Methylprednisolone Sodium Succinate (Solu-Medrol) 40 mg IV Q12H [facility] Last Admin: 08/20/17 00:13 Dose: 40 mg Morphine Sulfate (Morphine) 1 mg IV Q6H PRN PRN Reason: Pain, Moderate (4-6) Last Admin: 08/19/17 22:37 Dose: 1 mg Ondansetron HCl (Zofran) 4 mg IV Q8H PRN PRN Reason: N/V unrelieved by Reglan Review of Systems Constitutional: fever, chills, fatigue, weakness, malaise, no weight loss, no weight gain Ears, nose, mouth and throat: sore throat, no ear pain, no ear discharge, no tinnitis, no nose pain, no nasal congestion, no sinus pressure, no odynophagia Cardiovascular: no orthopnea, no shortness of breath Respiratory: no cough, no cough with sputum, no hemoptysis Gastrointestinal: abdominal pain, no nausea, no vomiting Genitourinary Female: dysuria, urinary frequency, no hematuria Physical Examination - Physical Exam Narrative exam: General appearance: Alert in NAD, conversant Eyes: anicteric sclerae, moist conjunctivae; no lid-lag; PERRLA HENT: Atraumatic; oropharynx limited; normal hard and soft palate. Normal external ears. Neck: Trachea midline; +cervical and right submandibular lymphadenopathy Lungs: CTA, with normal respiratory effort and no intercostal retractions CV: RRR, no murmurs Abdomen: Soft, non-tender; no masses or hepatosplenomegaly Extremities: No peripheral edema or extremity lymphadenopathy Skin: Normal temperature, turgor and texture; no rash, ulcers or subcutaneous nodules Psych: Appropriate affect, alert and oriented to person, place and time. Neuro: alert and oriented x 3. Moving all extermities Lines: No CVL / PICC - Constitutional Vitals: Vital Signs Temp Pulse Resp BP Pulse Ox 98.5 F 67 20 91/53 98 08/20/17 07:11 08/20/17 07:11 08/20/17 07:11 08/20/17 07:11 08/20/17 07:11 Temperature -Last 24 Hours Temperature 98.5 F Temperature 98.3 F Temperature 98.2 F Results - Labs CBC & Chem 7: 08/20/17 04:51 08/20/17 04:51 Labs: Abnormal lab results 08/19/17 08/20/17 08/20/17 Range/Units Unknown 04:51 04:51 WBC 19.0 H (4.5-11.0) K/mm3 Hgb 9.8 L (10.1-14.3) gm/dl MCV 76 L (79-97) fl MCH 24 L (28-32) pg RDW 16.5 H (13.2-15.2) % Seg Neuts % (Manual) 79.0 H (40.0-70.0) % Lymphocytes % (Manual) 10.0 L (13.4-35.0) % Seg Neutrophils # Man 15.0 H (1.8-7.7) K/mm3 Creatinine 0.5 L (0.7-1.2) mg/dL Glucose 144 H (65-100) mg/dL Albumin 3.6 L (3.9-5) g/dL Urine WBC (Auto) > 182.0 H (0.0-6.0) /HPF Assessment and Plan Assessment: 1) Sepsis: Present on admission, manifested by leukocytosis and tachycardia. Etiology most likely pharingitis/tonsillitis with a presumed peritonsilar abscess +/- UTI 2) Pharingitis/tonsillitis with a presumed peritonsilar abscess - etiology GAS, Fusobacterium, Strep anginosus -Neck CT showed + 1.5x2.5.1.5 cm peritonsilar abscess 3) UTI 4) Anemia Plan: -may require surgical drainage / ENT consult pending -start zosyn -to cover oral anaerobes too -stop ceftriaxone -follow-up blood cultures, urine culture -obtain C-reactive protein (CRP) -check kidney US -monitor fever Thank you Dr Kelly for your consultation, will follow up with you. Sofie Cook MD Infectious Diseases Specialist [facility] ([facility]) M [phone] O [phone]
[2017-08-20] MEDS: ZOSYN/NS 4.5GM/100ML 4.5 GM/100 ML VIAL IV SCH ×2 (19:42→21:18)
[2017-08-21] MEDS: ZOSYN/NS 4.5GM/100ML 4.5 GM/100 ML VIAL IV SCH ×3 (05:11→21:45)
[2017-08-21 05:22] LABS: Hematocrit 31.3 % (30.3-42.9); Hemoglobin 9.5 gm/dl (10.1-14.3); Mean Corpuscular HGB Conc 31 % (30-34); Mean Corpuscular Volume 77 fl (79-97); Platelet Count 345 K/mm3 (140-440); Red Blood Count 4.07 M/mm3 (3.65-5.03); Red Cell Distribution Width 16.7 % (13.2-15.2)
[2017-08-21 05:31] LABS: Mean Corpuscular Hemoglobin 23 pg (28-32); White Blood Count 21.5 K/mm3 (4.5-11.0)
[2017-08-21 05:39] LABS: Anion Gap 16 mmol/L; Blood Urea Nitrogen 9 mg/dL (7-17); Calcium 8.6 mg/dL (8.4-10.2); Carbon Dioxide 23 mmol/L (22-30); Chloride 106.5 mmol/L (98-107); Glucose 165 mg/dL (65-100); Potassium 3.9 mmol/L (3.6-5.0); Sodium 142 mmol/L (137-145)
[2017-08-21 06:27] LABS: Basophils % (Manual) 0 % (0.0-1.8); Blastocytes % (Manual) 0 %; Eosinophils % (Manual) 0 % (0.0-4.3)
[2017-08-21 06:28] LABS: Anisocytosis 1+; Diff Status Complete; Hypochromasia 1+; Platelet Estimate Consistent w Auto
--- NOTE | 2017-08-21 08:41 | Ultrasound Report ---
ULTRASOUND ABDOMEN COMPLETE: Technique: Transabdominal ultrasound with color Doppler interrogation. History: Sepsis, urinary tract infection, evaluate for nephrolithiasis or hydronephrosis. Findings: The liver is normal size, contour and echotexture. The gallbladder dimensions are within normal limits without intraluminal stone, wall thickening, or pericholecystic fluid. The CBD is normal caliber. The visualized portions of the pancreas including the head and proximal body are within normal limits. The kidneys demonstrate no hydronephrosis or mass. Cortical thickness and echogenicity are within normal limits bilaterally. The spleen and aorta are within normal limits. No aneurysmal dilatation is noted. No ascites. The bladder is unremarkable. IMPRESSION: Unremarkable abdominal ultrasound. The bladder is unremarkable. No evidence for nephrolithiasis or hydronephrosis.
[2017-08-21] MEDS: D5NS 1,000 ML IV SCH ×2 (08:51→23:17)
[2017-08-21] MEDS: PEPCID IV SCH ×2 (09:49→21:45)
--- NOTE | 2017-08-21 10:42 | Progress Note ---
Assessment and Plan Assessment and plan: --Right Peritonsillar developing abscess. On CT neck Continue IV antibiotics. Continue current antibiotics, follow cultures, ID following Clear liquid diet advance as tolerated Consulted ENT, awaiting evaluation and recommendations Patient's nurse contacted ENT surgeon --Sepsis secondary to peritonsillar abscess Continue antibiotics follow cultures --Leukocytosis secondary to sepsis, closely monitor --Cervical lymphadenopathy. Due to peritonsillar infection --DVT prophylaxis SCD Closely monitor the patient and adjust management as needed Plan of care discussed with the patient, family member as well as the nurse History Interval history: Patient seen and examined this morning Family member at the bedside Patient feels slightly better, awaiting ENT evaluation Patient has no new complaints Hospitalist Physical - Constitutional Vitals: Temp Pulse Resp BP Pulse Ox 98.5 F 86 14 118/64 98 08/20/17 22:00 08/20/17 22:00 08/20/17 22:00 08/20/17 22:00 08/20/17 22:00 General appearance: Present: no acute distress, well-nourished - EENT Eyes: Present: PERRL, EOM intact - Neck Neck: Present: supple, normal ROM - Respiratory Respiratory effort: normal Respiratory: negative: rales, rhonchi, wheezing - Cardiovascular Rhythm: regular Heart Sounds: Present: S1 & S2 - Extremities Extremities: no ischemia, No edema Peripheral Pulses: within normal limits - Abdominal General gastrointestinal: soft, non-tender, non-distended, normal bowel sounds - Integumentary Integumentary: Present: clear, warm - Psychiatric Psychiatric: appropriate mood/affect, cooperative - Neurologic Neurologic: CNII-XII intact, moves all extremities Results - Labs CBC & Chem 7: 08/21/17 04:23 08/21/17 04:23 Labs: Laboratory Last Values WBC 21.5 K/mm3 (4.5-11.0) H 08/21/17 04:23 RBC 4.07 M/mm3 (3.65-5.03) 08/21/17 04:23 Hgb 9.5 gm/dl (10.1-14.3) L 08/21/17 04:23 Hct 31.3 % (30.3-42.9) 08/21/17 04:23 MCV 77 fl (79-97) L 08/21/17 04:23 MCH 23 pg (28-32) L 08/21/17 04:23 MCHC 31 % (30-34) 08/21/17 04:23 RDW 16.7 % (13.2-15.2) H 08/21/17 04:23 Plt Count 345 K/mm3 (140-440) 08/21/17 04:23 Add Manual Diff Complete 08/21/17 04:23 Total Counted 100 08/21/17 04:23 Seg Neutrophils % [employer] 08/21/17 04:23 Seg Neuts % (Manual) 87.0 % (40.0-70.0) H 08/21/17 04:23 Band Neutrophils % 5.0 % 08/21/17 04:23 Lymphocytes % (Manual) 7.0 % (13.4-35.0) L 08/21/17 04:23 Reactive Lymphs % (Man) 0 % 08/21/17 04:23 Monocytes % (Manual) 1.0 % (0.0-7.3) 08/21/17 04:23 Eosinophils % (Manual) 0 % (0.0-4.3) 08/21/17 04:23 Basophils % (Manual) 0 % (0.0-1.8) 08/21/17 04:23 Metamyelocytes % 0 % 08/21/17 04:23 Myelocytes % 0 % 08/21/17 04:23 Promyelocytes % 0 % 08/21/17 04:23 Blast Cells % 0 % 08/21/17 04:23 Nucleated RBC % Not Reportable 08/21/17 04:23 Seg Neutrophils # Man 18.7 K/mm3 (1.8-7.7) H 08/21/17 04:23 Band Neutrophils # 1.1 K/mm3 08/21/17 04:23 Lymphocytes # (Manual) 1.5 K/mm3 (1.2-5.4) 08/21/17 04:23 Abs React Lymphs (Man) 0.0 K/mm3 08/21/17 04:23 Monocytes # (Manual) 0.2 K/mm3 (0.0-0.8) 08/21/17 04:23 Eosinophils # (Manual) 0.0 K/mm3 (0.0-0.4) 08/21/17 04:23 Basophils # (Manual) 0.0 K/mm3 (0.0-0.1) 08/21/17 04:23 Metamyelocytes # 0.0 K/mm3 08/21/17 04:23 Myelocytes # 0.0 K/mm3 08/21/17 04:23 Promyelocytes # 0.0 K/mm3 08/21/17 04:23 Blast Cells # 0.0 K/mm3 08/21/17 04:23 WBC Morphology Not Reportable 08/21/17 04:23 Hypersegmented Neuts Not Reportable 08/21/17 04:23 Hyposegmented Neuts Not Reportable 08/21/17 04:23 Hypogranular Neuts Not Reportable 08/21/17 04:23 Smudge Cells Not Reportable 08/21/17 04:23 Toxic Granulation Not Reportable 08/21/17 04:23 Toxic Vacuolation Not Reportable 08/21/17 04:23 Dohle Bodies Not Reportable 08/21/17 04:23 Pelger-Huet Anomaly Not Reportable 08/21/17 04:23 Araceli Rods Not Reportable 08/21/17 04:23 Platelet Estimate Consistent w auto 08/21/17 04:23 Clumped Platelets Not Reportable 08/21/17 04:23 Plt Clumps, EDTA Not Reportable 08/21/17 04:23 Large Platelets Not Reportable 08/21/17 04:23 Giant Platelets Not Reportable 08/21/17 04:23 Platelet Satelliting Not Reportable 08/21/17 04:23 Plt Morphology Comment Not Reportable 08/21/17 04:23 RBC Morphology Not Reportable 08/21/17 04:23 Dimorphic RBCs Not Reportable 08/21/17 04:23 Polychromasia Not Reportable 08/21/17 04:23 Hypochromasia 1+ 08/21/17 04:23 Poikilocytosis Not Reportable 08/21/17 04:23 Anisocytosis 1+ 08/21/17 04:23 Microcytosis Not Reportable 08/21/17 04:23 Macrocytosis Not Reportable 08/21/17 04:23 Spherocytes Not Reportable 08/21/17 04:23 Pappenheimer Bodies Not Reportable 08/21/17 04:23 Sickle Cells Not Reportable 08/21/17 04:23 Target Cells Not Reportable 08/21/17 04:23 Tear Drop Cells Not Reportable 08/21/17 04:23 Ovalocytes Not Reportable 08/21/17 04:23 Helmet Cells Not Reportable 08/21/17 04:23 [place] Bodies Not Reportable 08/21/17 04:23 [place] Rings Not Reportable 08/21/17 04:23 [place] Cells Not Reportable 08/21/17 04:23 Bite Cells Not Reportable 08/21/17 04:23 Crenated Cell Not Reportable 08/21/17 04:23 Elliptocytes Not Reportable 08/21/17 04:23 Acanthocytes (Spur) Not Reportable 08/21/17 04:23 Rouleaux Not Reportable 08/21/17 04:23 Hemoglobin C Crystals Not Reportable 08/21/17 04:23 Schistocytes Not Reportable 08/21/17 04:23 Malaria parasites Not Reportable 08/21/17 04:23 Jose [place] Bodies Not Reportable 08/21/17 04:23 Hem Pathologist Commnt No 08/21/17 04:23 Sodium 142 mmol/L (137-145) 08/21/17 04:23 Potassium 3.9 mmol/L (3.6-5.0) 08/21/17 04:23 Chloride 106.5 mmol/L (98-107) 08/21/17 04:23 Carbon Dioxide 23 mmol/L (22-30) 08/21/17 04:23 Anion Gap 16 mmol/L 08/21/17 04:23 BUN 9 mg/dL (7-17) 08/21/17 04:23 Creatinine 0.4 mg/dL (0.7-1.2) L 08/21/17 04:23 Estimated GFR > 60 ml/min 08/21/17 04:23 BUN/Creatinine Ratio 22.50 % 08/21/17 04:23 Glucose 165 mg/dL (65-100) H 08/21/17 04:23 Calcium 8.6 mg/dL (8.4-10.2) 08/21/17 04:23 Total Bilirubin 0.30 mg/dL (0.1-1.2) 08/20/17 04:51 Direct Bilirubin 0.3 mg/dL (0-0.2) H 08/19/17 15:15 Indirect Bilirubin 0.4 mg/dL 08/19/17 15:15 AST 9 units/L (5-40) 08/20/17 04:51 ALT 9 units/L (7-56) 08/20/17 04:51 Alkaline Phosphatase 64 units/L (35-129) 08/20/17 04:51 C-Reactive Protein 27.30 mg/dL (0.00-1.30) H 08/20/17 04:51 Total Protein 7.1 g/dL (6.3-8.2) 08/20/17 04:51 Albumin 3.6 g/dL (3.9-5) L 08/20/17 04:51 Albumin/Globulin Ratio 1.0 % 08/20/17 04:51 Urine Color Yellow (Yellow) 08/19/17 Unknown Urine Turbidity Clear (Clear) 08/19/17 Unknown Urine pH 6.0 (5.0-7.0) 08/19/17 Unknown Ur Specific [place] 1.026 (1.003-1.030) 08/19/17 Unknown Urine Protein >500 mg/dL (Negative) 08/19/17 Unknown Urine Glucose (UA) Neg mg/dL (Negative) 08/19/17 Unknown Urine Ketones 80 mg/dL (Negative) 08/19/17 Unknown Urine Blood Mod (Negative) 08/19/17 Unknown Urine Nitrite Neg (Negative) 08/19/17 Unknown Urine Bilirubin Neg (Negative) 08/19/17 Unknown Urine Urobilinogen 2.0 mg/dL (<2.0) 08/19/17 Unknown Ur Leukocyte Esterase Lg (Negative) 08/19/17 Unknown Urine WBC (Auto) > 182.0 /HPF (0.0-6.0) H 08/19/17 Unknown Urine RBC (Auto) 40.0 /HPF (0.0-6.0) 08/19/17 Unknown U Epithel Cells (Auto) 10.0 /HPF (0-13.0) 08/19/17 Unknown Urine Bacteria (Auto) 1+ /HPF (Negative) 08/19/17 Unknown Amorphous Crystals Few 08/19/17 Unknown Urine Mucus 3+ /HPF 08/19/17 Unknown Urine HCG, Qual Negative (Negative) 08/19/17 Unknown
[2017-08-21] MEDS: TYLENOL PO PRN (12:13)
--- NOTE | 2017-08-21 12:19 | Progress Note ---
Assessment and Plan Assessment: 1) Sepsis: better however leukocytosis worsening likely due to IV steroids. Etiology most likely pharingitis/tonsillitis with a presumed peritonsilar abscess +/- UTI. CRP=27 2) Pharingitis/tonsillitis with a presumed peritonsilar abscess - DDx etiology GAS, Fusobacterium, Strep anginosus -Neck CT showed + 1.5 x 2.5 x 1.5 cm peritonsilar abscess 3) UTI - US renal normal. Urine cx + Staph saprophyticus (usually a comensal) 4) Anemia Plan: -continue zosyn -ENT eval -upon discharge will do augmentin 875 mg PO BID for [address] Dexter for your consultation, will follow up with you. Sofie Cook MD Infectious Diseases Specialist [facility] [place] [facility] ([facility]) M [phone] O [phone] Subjective Date of service: 08/21/17 Principal diagnosis: peritonsillar abscess Interval history: Feels better, sore throat has decreased. No fever. Current Antimicrobials: zosyn 08/20 Previous Antimicrobials: ceftriaxone Microbiology: Blood cultures: 08/19 ngtd Urine cultures: 08/19 Staph saprophyticus >100K Respiratory cultures: Wound cultures: Stool cultures: Other: Strep A antigen neg Objective - Exam Narrative Exam: General appearance: Alert in NAD, conversant Eyes: anicteric sclerae, moist conjunctivae; no lid-lag; PERRLA HENT: Atraumatic; oropharynx limited; normal hard and soft palate. Normal external ears. Neck: Trachea midline; +cervical and right submandibular lymphadenopathy Lungs: CTA, with normal respiratory effort and no intercostal retractions CV: RRR, no murmurs Abdomen: Soft, non-tender; no masses or hepatosplenomegaly Extremities: No peripheral edema or extremity lymphadenopathy Skin: Normal temperature, turgor and texture; no rash, ulcers or subcutaneous nodules Psych: Appropriate affect, alert and oriented to person, place and time. Neuro: alert and oriented x 3. Moving all extermities Lines: No CVL / PICC - Constitutional Vitals: Vital Signs Temp Pulse Resp BP Pulse Ox 98.5 F 86 14 118/64 98 08/20/17 22:00 08/20/17 22:00 08/20/17 22:00 08/20/17 22:00 08/20/17 22:00 Temperature -Last 24 Hours Temperature 98.5 F Temperature 98.2 F - Labs CBC & Chem 7: 08/21/17 04:23 08/21/17 04:23 Labs: Abnormal lab results 08/20/17 08/21/17 08/21/17 Range/Units 04:51 04:23 04:23 WBC 21.5 H (4.5-11.0) K/mm3 Hgb 9.5 L (10.1-14.3) gm/dl MCV 77 L (79-97) fl MCH 23 L (28-32) pg RDW 16.7 H (13.2-15.2) % Seg Neuts % (Manual) 87.0 H (40.0-70.0) % Lymphocytes % (Manual) 7.0 L (13.4-35.0) % Seg Neutrophils # Man 18.7 H (1.8-7.7) K/mm3 Creatinine 0.4 L (0.7-1.2) mg/dL Glucose 165 H (65-100) mg/dL C-Reactive Protein 27.30 H (0.00-1.30) mg/dL
[2017-08-22 04:57] LABS: Basophils % (Auto) 0.1 % (0.0-1.8); Hematocrit 30.4 % (30.3-42.9); Hemoglobin 9.6 gm/dl (10.1-14.3); Mean Corpuscular HGB Conc 31 % (30-34); Mean Corpuscular Volume 76 fl (79-97); Platelet Count 362 K/mm3 (140-440); Red Cell Distribution Width 16.7 % (13.2-15.2); White Blood Count 17.1 K/mm3 (4.5-11.0)
[2017-08-22 05:00] LABS: Mean Corpuscular Hemoglobin 24 pg (28-32)
[2017-08-22 05:10] LABS: Anion Gap 18 mmol/L; Blood Urea Nitrogen 7 mg/dL (7-17); Calcium 8.1 mg/dL (8.4-10.2); Carbon Dioxide 21 mmol/L (22-30); Chloride 104.7 mmol/L (98-107); Glucose 142 mg/dL (65-100); Potassium 3.4 mmol/L (3.6-5.0); Sodium 140 mmol/L (137-145)
[2017-08-22] MEDS: ZOSYN/NS 4.5GM/100ML 4.5 GM/100 ML VIAL IV SCH ×2 (06:52→15:20)
[2017-08-22 07:21] VITALS: BP 93/56
--- NOTE | 2017-08-22 09:20 | Progress Note ---
Assessment and Plan Assessment: 1) Sepsis: better however leukocytosis worsening likely due to IV steroids. Etiology most likely pharingitis/tonsillitis with a presumed peritonsilar abscess +/- UTI. CRP=27 2) Pharingitis/tonsillitis with a presumed peritonsilar abscess - DDx etiology GAS, Fusobacterium, Strep anginosus -Neck CT showed + 1.5 x 2.5 x 1.5 cm peritonsilar abscess 3) UTI - US renal normal. Urine cx + Staph saprophyticus (usually a comensal) 4) Anemia Plan: -continue zosyn -upon discharge will do augmentin 875 mg PO BID for total [address] Dexter for your consultation, will follow up with you. Sofie Cook MD Infectious Diseases Specialist [facility] [phone] Subjective Date of service: 08/22/17 Principal diagnosis: peritonsillar abscess Interval history: Feels better, no fever. minimal sore throat. eating some. Current Antimicrobials: zosyn 08/20 Previous Antimicrobials: ceftriaxone Microbiology: Blood cultures: 08/19 ngtd Urine cultures: 08/19 Staph saprophyticus >100K Respiratory cultures: Wound cultures: Stool cultures: Other: Strep A antigen neg Objective - Exam Narrative Exam: General appearance: Alert in NAD, conversant Eyes: anicteric sclerae, moist conjunctivae; no lid-lag; PERRLA HENT: Atraumatic; oropharynx limited; normal hard and soft palate. Normal external ears. Neck: Trachea midline; +cervical and right submandibular lymphadenopathy Lungs: CTA, with normal respiratory effort and no intercostal retractions CV: RRR, no murmurs Abdomen: Soft, non-tender; no masses or hepatosplenomegaly Extremities: No peripheral edema or extremity lymphadenopathy Skin: Normal temperature, turgor and texture; no rash, ulcers or subcutaneous nodules Psych: Appropriate affect, alert and oriented to person, place and time. Neuro: alert and oriented x 3. Moving all extermities Lines: No CVL / PICC - Constitutional Vitals: Vital Signs Temp Pulse Resp BP Pulse Ox 98.4 F 52 L 16 93/56 94 08/22/17 07:18 08/22/17 07:18 08/22/17 07:18 08/22/17 07:18 08/22/17 07:18 Temperature -Last 24 Hours Temperature 98.4 F Temperature 98.7 F Temperature 98.2 F - Labs CBC & Chem 7: 08/22/17 03:36 08/22/17 03:36 Labs: Abnormal lab results 08/22/17 08/22/17 Range/Units 03:36 03:36 WBC 17.1 H (4.5-11.0) K/mm3 Hgb 9.6 L (10.1-14.3) gm/dl MCV 76 L (79-97) fl MCH 24 L (28-32) pg RDW 16.7 H (13.2-15.2) % Lymph % (Auto) 7.6 L (13.4-35.0) % Seg Neutrophils % 87.6 H (40.0-70.0) % Seg Neutrophils # 15.0 H (1.8-7.7) K/mm3 Potassium 3.4 L (3.6-5.0) mmol/L Carbon Dioxide 21 L (22-30) mmol/L Creatinine 0.4 L (0.7-1.2) mg/dL Glucose 142 H (65-100) mg/dL Calcium 8.1 L (8.4-10.2) mg/dL
[2017-08-22] MEDS: PEPCID IV SCH (10:01)
[2017-08-22] MEDS: D5NS 1,000 ML IV SCH (10:01)
--- NOTE | 2017-08-22 10:04 | Progress Note ---
Assessment and Plan Assessment and plan: --Right Peritonsillar developing abscess. On CT neck Continue IV antibiotics. Continue current antibiotics, follow cultures, ID following Clear liquid diet advance as tolerated Consulted ENT, awaiting evaluation and recommendations Patient's nurse contacted ENT surgeon --Sepsis secondary to peritonsillar abscess Continue antibiotics follow cultures --Leukocytosis secondary to sepsis, closely monitor --Cervical lymphadenopathy. Due to peritonsillar infection --DVT prophylaxis SCD Closely monitor the patient and adjust management as needed Plan of care discussed with the patient, family member as well as the nurse History Interval history: Patient seen and examined this morning Slightly better, tolerating soft diet Afebrile Pending ENT evaluation Hospitalist Physical - Constitutional Vitals: Temp Pulse Resp BP Pulse Ox 98.4 F 52 L 16 93/56 94 08/22/17 07:18 08/22/17 07:18 08/22/17 07:18 08/22/17 07:18 08/22/17 07:18 General appearance: Present: no acute distress, well-nourished - EENT Eyes: Present: PERRL, EOM intact - Neck Neck: Present: supple, normal ROM - Respiratory Respiratory effort: normal Respiratory: negative: rales, rhonchi, wheezing - Cardiovascular Rhythm: regular Heart Sounds: Present: S1 & S2 - Extremities Extremities: no ischemia, No edema Peripheral Pulses: within normal limits - Abdominal General gastrointestinal: soft, non-tender, non-distended, normal bowel sounds - Integumentary Integumentary: Present: clear, warm - Psychiatric Psychiatric: appropriate mood/affect, cooperative - Neurologic Neurologic: CNII-XII intact, moves all extremities Results - Labs CBC & Chem 7: 08/22/17 03:36 08/22/17 03:36 Labs: Laboratory Last Values WBC 17.1 K/mm3 (4.5-11.0) H 08/22/17 03:36 RBC 4.00 M/mm3 (3.65-5.03) 08/22/17 03:36 Hgb 9.6 gm/dl (10.1-14.3) L 08/22/17 03:36 Hct 30.4 % (30.3-42.9) 08/22/17 03:36 MCV 76 fl (79-97) L 08/22/17 03:36 MCH 24 pg (28-32) L 08/22/17 03:36 MCHC 31 % (30-34) 08/22/17 03:36 RDW 16.7 % (13.2-15.2) H 08/22/17 03:36 Plt Count 362 K/mm3 (140-440) 08/22/17 03:36 Lymph % (Auto) 7.6 % (13.4-35.0) L 08/22/17 03:36 [place] % (Auto) 4.7 % (0.0-7.3) 08/22/17 03:36 Eos % (Auto) 0.0 % (0.0-4.3) 08/22/17 03:36 Baso % (Auto) 0.1 % (0.0-1.8) 08/22/17 03:36 Lymph # 1.3 K/mm3 (1.2-5.4) 08/22/17 03:36 [place] # 0.8 K/mm3 (0.0-0.8) 08/22/17 03:36 Eos # 0.0 K/mm3 (0.0-0.4) 08/22/17 03:36 Baso # 0.0 K/mm3 (0.0-0.1) 08/22/17 03:36 Add Manual Diff Complete 08/21/17 04:23 Total Counted 100 08/21/17 04:23 Seg Neutrophils % 87.6 % (40.0-70.0) H 08/22/17 03:36 Seg Neuts % (Manual) 87.0 % (40.0-70.0) H 08/21/17 04:23 Band Neutrophils % 5.0 % 08/21/17 04:23 Lymphocytes % (Manual) 7.0 % (13.4-35.0) L 08/21/17 04:23 Reactive Lymphs % (Man) 0 % 08/21/17 04:23 Monocytes % (Manual) 1.0 % (0.0-7.3) 08/21/17 04:23 Eosinophils % (Manual) 0 % (0.0-4.3) 08/21/17 04:23 Basophils % (Manual) 0 % (0.0-1.8) 08/21/17 04:23 Metamyelocytes % 0 % 08/21/17 04:23 Myelocytes % 0 % 08/21/17 04:23 Promyelocytes % 0 % 08/21/17 04:23 Blast Cells % 0 % 08/21/17 04:23 Nucleated RBC % Not Reportable 08/21/17 04:23 Seg Neutrophils # 15.0 K/mm3 (1.8-7.7) H 08/22/17 03:36 Seg Neutrophils # Man 18.7 K/mm3 (1.8-7.7) H 08/21/17 04:23 Band Neutrophils # 1.1 K/mm3 08/21/17 04:23 Lymphocytes # (Manual) 1.5 K/mm3 (1.2-5.4) 08/21/17 04:23 Abs React Lymphs (Man) 0.0 K/mm3 08/21/17 04:23 Monocytes # (Manual) 0.2 K/mm3 (0.0-0.8) 08/21/17 04:23 Eosinophils # (Manual) 0.0 K/mm3 (0.0-0.4) 08/21/17 04:23 Basophils # (Manual) 0.0 K/mm3 (0.0-0.1) 08/21/17 04:23 Metamyelocytes # 0.0 K/mm3 08/21/17 04:23 Myelocytes # 0.0 K/mm3 08/21/17 04:23 Promyelocytes # 0.0 K/mm3 08/21/17 04:23 Blast Cells # 0.0 K/mm3 08/21/17 04:23 WBC Morphology Not Reportable 08/21/17 04:23 Hypersegmented Neuts Not Reportable 08/21/17 04:23 Hyposegmented Neuts Not Reportable 08/21/17 04:23 Hypogranular Neuts Not Reportable 08/21/17 04:23 Smudge Cells Not Reportable 08/21/17 04:23 Toxic Granulation Not Reportable 08/21/17 04:23 Toxic Vacuolation Not Reportable 08/21/17 04:23 Dohle Bodies Not Reportable 08/21/17 04:23 Pelger-Huet Anomaly Not Reportable 08/21/17 04:23 Araceli Rods Not Reportable 08/21/17 04:23 Platelet Estimate Consistent w auto 08/21/17 04:23 Clumped Platelets Not Reportable 08/21/17 04:23 Plt Clumps, EDTA Not Reportable 08/21/17 04:23 Large Platelets Not Reportable 08/21/17 04:23 Giant Platelets Not Reportable 08/21/17 04:23 Platelet Satelliting Not Reportable 08/21/17 04:23 Plt Morphology Comment Not Reportable 08/21/17 04:23 RBC Morphology Not Reportable 08/21/17 04:23 Dimorphic RBCs Not Reportable 08/21/17 04:23 Polychromasia Not Reportable 08/21/17 04:23 Hypochromasia 1+ 08/21/17 04:23 Poikilocytosis Not Reportable 08/21/17 04:23 Anisocytosis 1+ 08/21/17 04:23 Microcytosis Not Reportable 08/21/17 04:23 Macrocytosis Not Reportable 08/21/17 04:23 Spherocytes Not Reportable 08/21/17 04:23 Pappenheimer Bodies Not Reportable 08/21/17 04:23 Sickle Cells Not Reportable 08/21/17 04:23 Target Cells Not Reportable 08/21/17 04:23 Tear Drop Cells Not Reportable 08/21/17 04:23 Ovalocytes Not Reportable 08/21/17 04:23 Helmet Cells Not Reportable 08/21/17 04:23 [place] Bodies Not Reportable 08/21/17 04:23 Elma Rings Not Reportable 08/21/17 04:23 [place] Cells Not Reportable 08/21/17 04:23 Bite Cells Not Reportable 08/21/17 04:23 Crenated Cell Not Reportable 08/21/17 04:23 Elliptocytes Not Reportable 08/21/17 04:23 Acanthocytes (Spur) Not Reportable 08/21/17 04:23 Rouleaux Not Reportable 08/21/17 04:23 Hemoglobin C Crystals Not Reportable 08/21/17 04:23 Schistocytes Not Reportable 08/21/17 04:23 Malaria parasites Not Reportable 08/21/17 04:23 [place] Bodies Not Reportable 08/21/17 04:23 Hem Pathologist Commnt No 08/21/17 04:23 Sodium 140 mmol/L (137-145) 08/22/17 03:36 Potassium 3.4 mmol/L (3.6-5.0) L 08/22/17 03:36 Chloride 104.7 mmol/L (98-107) 08/22/17 03:36 Carbon Dioxide 21 mmol/L (22-30) L 08/22/17 03:36 Anion Gap 18 mmol/L 08/22/17 03:36 BUN 7 mg/dL (7-17) 08/22/17 03:36 Creatinine 0.4 mg/dL (0.7-1.2) L 08/22/17 03:36 Estimated GFR > 60 ml/min 08/22/17 03:36 BUN/Creatinine Ratio 17.50 % 08/22/17 03:36 Glucose 142 mg/dL (65-100) H 08/22/17 03:36 Calcium 8.1 mg/dL (8.4-10.2) L 08/22/17 03:36 Total Bilirubin 0.30 mg/dL (0.1-1.2) 08/20/17 04:51 Direct Bilirubin 0.3 mg/dL (0-0.2) H 08/19/17 15:15 Indirect Bilirubin 0.4 mg/dL 08/19/17 15:15 AST 9 units/L (5-40) 08/20/17 04:51 ALT 9 units/L (7-56) 08/20/17 04:51 Alkaline Phosphatase 64 units/L (35-129) 08/20/17 04:51 C-Reactive Protein 27.30 mg/dL (0.00-1.30) H 08/20/17 04:51 Total Protein 7.1 g/dL (6.3-8.2) 08/20/17 04:51 Albumin 3.6 g/dL (3.9-5) L 08/20/17 04:51 Albumin/Globulin Ratio 1.0 % 08/20/17 04:51 Urine Color Yellow (Yellow) 08/19/17 Unknown Urine Turbidity Clear (Clear) 08/19/17 Unknown Urine pH 6.0 (5.0-7.0) 08/19/17 Unknown Ur Specific [place] 1.026 (1.003-1.030) 08/19/17 Unknown Urine Protein >500 mg/dL (Negative) 08/19/17 Unknown Urine Glucose (UA) Neg mg/dL (Negative) 08/19/17 Unknown Urine Ketones 80 mg/dL (Negative) 08/19/17 Unknown Urine Blood Mod (Negative) 08/19/17 Unknown Urine Nitrite Neg (Negative) 08/19/17 Unknown Urine Bilirubin Neg (Negative) 08/19/17 Unknown Urine Urobilinogen 2.0 mg/dL (<2.0) 08/19/17 Unknown Ur Leukocyte Esterase Lg (Negative) 08/19/17 Unknown Urine WBC (Auto) > 182.0 /HPF (0.0-6.0) H 08/19/17 Unknown Urine RBC (Auto) 40.0 /HPF (0.0-6.0) 08/19/17 Unknown U Epithel Cells (Auto) 10.0 /HPF (0-13.0) 08/19/17 Unknown Urine Bacteria (Auto) 1+ /HPF (Negative) 08/19/17 Unknown Amorphous Crystals Few 08/19/17 Unknown Urine Mucus 3+ /HPF 08/19/17 Unknown Urine HCG, Qual Negative (Negative) 08/19/17 Unknown
[2017-08-22] MEDS: TYLENOL PO PRN (10:09)
[2017-08-22] MEDS ORDERED: K-DUR PO ONE ×2 (11:00→15:00)
--- NOTE | 2017-08-22 14:04 | Discharge Summary ---
Providers - Providers Date of Admission: 08/19/17 16:35 Date of discharge: 08/22/17 Attending physician: JAMEL MARLOW 08/20/17 08:06 Consult to Physician [CONS] Routine Consulting Provider: MIKE REDMOND Reason For Exam: Peritonsillar abscess Place consult to:: dr. 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 left a msg on voice mail 08/20/17 11:10 Consult to Physician [CONS] Routine Consulting Provider: ANTON GARCIA Reason For Exam: peritonsillar abscess Place consult to:: dr. hughes Notified:: md Phone number called:: [phone] Was contact made?: Yes If yes, spoke with:: dr. hughes Time called:: 11:40 Primary care physician: JUNIOR FINANCIAL ANALYST Hospitalization Condition: Stable Hospital course: --Right Peritonsillar developing abscess. On CT neck Continue IV antibiotics. Continue current antibiotics, follow cultures, ID following Clear liquid diet advance as tolerated Consulted ENT, awaiting evaluation and recommendations Patient's nurse contacted ENT surgeon --Sepsis secondary to peritonsillar abscess Continue antibiotics follow cultures --Leukocytosis secondary to sepsis, closely monitor --Cervical lymphadenopathy. Due to peritonsillar infection Disposition: DC-01 TO HOME OR SELFCARE Core Measure Documentation - Palliative Care Palliative Care/ Comfort Measures: Not Applicable - Core Measures Any of the following diagnoses?: none Exam - Constitutional Vitals: Temp Pulse Resp BP Pulse Ox 98.4 F 52 L 16 93/56 94 08/22/17 07:18 08/22/17 07:18 08/22/17 07:18 08/22/17 07:18 08/22/17 07:18 General appearance: Present: no acute distress, well-nourished - EENT Eyes: Present: PERRL, EOM intact - Neck Neck: Present: supple, normal ROM - Respiratory Respiratory effort: normal Respiratory: negative: diminished, rales, rhonchi, wheezing - Cardiovascular Rhythm: regular Heart Sounds: Present: S1 & S2 - Extremities Extremities: no ischemia, No edema Peripheral Pulses: within normal limits - Abdominal General gastrointestinal: Present: soft, non-tender, non-distended, normal bowel sounds - Integumentary Integumentary: Present: clear, warm - Musculoskeletal Musculoskeletal: strength equal bilaterally - Psychiatric Psychiatric: appropriate mood/affect, cooperative - Neurologic Neurologic: CNII-XII intact, moves all extremities Plan Activity: no restrictions Diet: advance as tolerated Additional Instructions: f/u with ENT surgeon in 1-2 days for further evaluation and management Follow up with: PRIMARY CARE, [Primary Care Provider] - 3-5 Days MIKE REDMOND MD [Staff Physician] - 7 Days ANTON GARCIA MD [Staff Physician] - 7 Days Prescriptions: Amoxicillin/K Clav Tab [Augmentin 875 mg] 1 tab PO Q12HR #20 tab Ibuprofen [Advil 100 MG tab] 200 mg PO Q6H PRN #20 tablet PRN Reason: Pain
== END 2017-08-22 16:00 | disposition home or self-care (01) | DRG 872 ==
LOC: ED 10:56 → 3A 16:35
PROVIDERS: ADMIT Internal Medicine; ATTEND Internal Medicine
DX: A41.9 Sepsis, unspecified organism (principal); N30.00 Acute cystitis without hematuria; J36 Peritonsillar abscess; J03.80 Acute tonsillitis due to other specified organisms; E86.0 Dehydration; B95.7 Other staphylococcus as the cause of diseases classified elsewhere; D64.9 Anemia, unspecified
CPT/HCPCS: 36415; 70491; 76700; 80048; 80053; 80074; 81001; 81025; 85007; 85025; 86038; 86140; 87040; 87086; 87116; 87430; 96365; 96375; J0696; J1885; J2270; J2405; J2543; J2920; J2930; J7030; J7042; Q9967